=== PATIENT | female | born 1985 ===

== ENCOUNTER 2017-08-13 17:33 | Emergency (ER) | payer OTHER ==
[~2017-08-13] VITALS: Ht 157.5 cm; Wt 59.0 kg
[~2017-08-13 17:33] MED LIST: IBUP800 PO; OXYACE5T PO; [UNRECOGNIZED DRUG - OTHER]
[2017-08-13 19:19] LABS: BASOPHILS PERCENT AUTO 2 % (0-2); EOSINOPHILS ABSOLUTE AUTO 0.15 K/mm3 (0.00-0.68); EOSINOPHILS PERCENT AUTO 3 % (0-6); Hematocrit 31.3 % (33.0-51.0); Hemoglobin 9.3 g/dL (11.5-16.0); IMMATURE GRAN ABSOLUTE AUTO 0.02 K/mm3 (0.00-0.10); IMMATURE GRAN PERCENT AUTO 0 % (0-1); LYMPHOCYTES ABSOLUTE AUTO 1.65 K/mm3 (0.84-5.20); LYMPHOCYTES PERCENT AUTO 29 % (21-46); MONOCYTES ABSOLUTE AUTO 0.37 K/mm3 (0.16-1.47); MONOCYTES PERCENT AUTO 7 % (4-13); Mean Corpuscular HGB 20.1 pg (26.0-34.0); Mean Corpuscular HGB Conc 29.7 g/dL (31.5-36.5); Mean Corpuscular Volume 68 fL (80-100); Mean Platelet Volume 8.6 fL (9.1-12.4); NEUTROPHILS ABSOLUTE AUTO 3.33 K/mm3 (1.96-9.15); NEUTROPHILS PERCENT AUTO 59 % (41-73); Platelet Count 138 K/mm3 (150-400); RDW Coefficient Variation 22.9 % (11.7-14.2); RDW Standard Deviation 54.7 fL (35.1-46.3); Red Blood Cell Count 4.63 M/mm3 (3.80-5.20); White Blood Cell Count 5.62 K/mm3 (4.00-11.30)
[2017-08-13 19:42] LABS: Alanine Aminotransfer (ALT/SGP 74 U/L (12-78); Albumin, Blood 3.9 g/dL (3.4-5.0); Albumin/Globulin Ratio 0.8 (0.8-1.8); Alk Phos 150 U/L (50-136); Anion Gap 10 mmol/L (6-16); Aspartate Aminotrans (AST/SGOT 209 U/L (12-37); Bilirubin, Total 1.3 mg/dL (0.1-1.0); Blood Urea Nitrogen 2 mg/dL (8-24); Bun/Creatinine Ratio 3.9 (12.0-20.0); CO2, Blood 27 mmol/L (21-32); Calcium, Blood 8.5 mg/dL (8.5-10.1); Chloride, Blood 106 mmol/L (98-108); Creatinine, Blood 0.51 mg/dL (0.40-1.00); Globulin, Blood 5.2 g/dL (2.2-4.0); Glomerular Filtration Rate >60 (60-); Glucose, Blood 92 mg/dL (70-99); Potassium, Blood 3.9 mmol/L (3.5-5.5); Sodium, Blood 143 mmol/L (136-145); Total Protein, Blood 9.1 g/dL (6.4-8.2)
[2017-08-13] MEDS ORDERED: Zofran Odt4 MG SL (21:44)
== END 2017-08-13 21:59 | disposition home or self-care (01) ==
LOC: ER 17:33
PROVIDERS: Nurse Practitioner Family
DX: R10.30 Lower abdominal pain, unspecified (principal); Z88.8 Allergy status to other drugs, medicaments and biological substances; Z88.5 Allergy status to narcotic agent; Z91.018 Allergy to other foods; Z87.891 Personal history of nicotine dependence
CPT/HCPCS: 36415; 76830; 76856; 80053; 81000; 81025; 85025; 96374; 96375; 99284; J1885; J2405

== ENCOUNTER → 2023-11-13 | Outpatient (CLI) | payer OTHER ==
[~2023-11-13] MED LIST changes: +Zofran Odt4 MG SL
[2023-11-13 15:28] LABS: BASOPHILS ABSOLUTE AUTO 0.05 K/mm3 (0.00-0.23); BASOPHILS PERCENT AUTO 1 % (0-2); EOSINOPHILS ABSOLUTE AUTO 0.18 K/mm3 (0.00-0.68); EOSINOPHILS PERCENT AUTO 2 % (0-6); Hemoglobin 10.4 g/dL (11.5-16.0); IMMATURE GRAN ABSOLUTE AUTO 0.02 K/mm3 (0.00-0.10); IMMATURE GRAN PERCENT AUTO 0 % (0-1); LYMPHOCYTES ABSOLUTE AUTO 2.92 K/mm3 (0.84-5.20); LYMPHOCYTES PERCENT AUTO 37 % (21-46); MONOCYTES ABSOLUTE AUTO 0.45 K/mm3 (0.16-1.47); MONOCYTES PERCENT AUTO 6 % (4-13); Mean Corpuscular HGB 23.1 pg (26.0-34.0); Mean Corpuscular HGB Conc 31.5 g/dL (31.5-36.5); Mean Corpuscular Volume 73 fL (80-100); Mean Platelet Volume 10.5 fL (9.1-12.4); NEUTROPHILS ABSOLUTE AUTO 4.38 K/mm3 (1.96-9.15); NEUTROPHILS PERCENT AUTO 55 % (41-73); Platelet Count 397 K/mm3 (150-400); RDW Coefficient Variation 15.8 % (11.7-14.2); RDW Standard Deviation 41.8 fL (35.1-46.3); RETICULOCYTE ABSOLUTE 0.0527 M/mm3 (0.0200-0.1100); RETICULOCYTE COUNT PERCENT 1.17 % (0.50-2.50)
[2023-11-13 15:42] LABS: Percent Saturation 5.2 % (15.0-50.0)
== END ==
LOC: LAB SHORT 14:14 → LAB 14:14
PROVIDERS: Family Medicine
DX: D50.8 Other iron deficiency anemias (principal); D64.9 Anemia, unspecified
CPT/HCPCS: 82607; 82728; 82746; 83540; 83550; 85025; 85045

== ENCOUNTER → 2023-12-02 | Outpatient (CLI) | payer OTHER ==
[2023-12-09 11:19] LABS: HPV HIGH RISK BY TMA Not Detected; HPV SOURCE Cervical
== END | disposition home or self-care (01) ==
LOC: LAB 19:01 → LAB SHORT 19:01
PROVIDERS: Family Medicine
DX: Z01.419 Encounter for gynecological examination (general) (routine) without abnormal findings (principal)
CPT/HCPCS: 87624; G0123

== ENCOUNTER → 2024-08-19 | Outpatient (CLI) | payer OTHER ==
[2024-08-19 20:56] LABS: Bacterial Vaginosis PCR Negative (NEGATIVE); Candida Group, PCR NOT DETECTED (NOT DETECT); Candida glabrata-krusei, PCR NOT DETECTED (NOT DETECT)
== END ==
LOC: LAB 16:50 → LAB SHORT 16:50
PROVIDERS: Family Medicine
DX: N92.1 Excessive and frequent menstruation with irregular cycle (principal)
CPT/HCPCS: 81515

== ENCOUNTER 2025-03-16 05:51 | Day surgery (SDC) | payer OTHER ==
[2025-03-16] VITALS (11 sets, daily range): BP systolic 102–140; BP diastolic 66–94
[~2025-03-16] VITALS: Ht 157.5 cm; Wt 63.2 kg
[2025-03-16] MEDS ORDERED: CeFAZolin Sodium 2,000 MG in NS 100 ML IV SCH ×2 (06:25→14:00)
[2025-03-16] MEDS ORDERED: FentaNYL Citrate 50 MCG/ML 2 ML Injection ONE (06:57)
[2025-03-16] MEDS ORDERED: Sugammadex Sodium 200 MG/2ML SDV (100 MG/ML) ONE (06:57)
[2025-03-16] MEDS ORDERED: Ondansetron HCl 2 MG / ML 2ML Vial ONE (06:59)
[2025-03-16] MEDS ORDERED: Rocuronium Bromide 10 MG/ML 5ML Injection IV ONE ×3 (06:59→10:06)
[2025-03-16] MEDS ORDERED: Dexamethasone Sod Phos 10 MG/ML 1ML VIAL ONE (06:59)
[2025-03-16] MEDS ORDERED: Bupivacaine 0.5% W/EPI 1:200000 SDV 30 ML Vial ONE (07:13)
[2025-03-16] MEDS ORDERED: Phenylephrine HCl 100 MCG/ML-NS 10MLSYR (1MG/10ML) ONE ×2 (07:41→10:35)
[2025-03-16] MEDS ORDERED: HYDROmorphone HCl/Pf 1MG SYR ONE (09:29)
[2025-03-16] MEDS ORDERED: FentaNYL Citrate 50 MCG/ML 2 ML Injection IV PRN ×2 (11:30)
[2025-03-16] MEDS ORDERED: LORazepam 2 MG/ML 1ML Injection IV PRN (11:30)
[2025-03-16] MEDS ORDERED: Ketorolac Tromethamine 30mg Vial IV ONE (11:30)
[2025-03-16] MEDS ORDERED: Albuterol 2.5 MG/3 ML VIAL INH PRN (11:30)
[2025-03-16] MEDS ORDERED: Ondansetron HCl 2 MG / ML 2ML Vial IV PRN ×2 (11:30→11:45)
[2025-03-16] MEDS ORDERED: HYDROmorphone HCl/Pf 1MG SYR IV PRN ×3 (11:35→11:40)
[2025-03-16] MEDS ORDERED: FLU VACC TS2025-26(6MOS UP)/PF 45 MCG/0.5 ML SYRINGE IM ONE (11:40)
[2025-03-16] MEDS ORDERED: Naloxone HCl 0.4MG / ML 1ML Vial IV PRN (11:40)
[2025-03-16] MEDS ORDERED: Ketorolac Tromethamine 30mg Vial IV PRN (11:50)
--- NOTE | 2025-03-16 17:27 | NUR ---
DISCHARGE S/P [facility] WITH BSO PT AMBULATING WELL, PAIN WELL CONTROLLED PER EMAR. TOLERATING DIET WELL, MINIMAL NAUSEA PT REPORTS WOULD FEEL BETTER CONTROLLED AT HOME. ABLE TO VOID LARGE AMOUNT. ALL INSTRUCTIONS GONE OVER WITH PATIENT. ALL QUESTIONS ANSWERED. ESCORTED OUT VIA WHEELCHAIR.
== END 2025-03-16 17:30 | disposition home or self-care (01) ==
LOC: ORSCMMR 05:51 → SURS 05:51 → ORSCMMR 05:53 → ORD 07:30 → ORSCMMR 07:30 → SURS 11:36 → ORSCMMR 17:30
PROVIDERS: Obstetrics & Gynecology
PROC: 0UT7FZZ Resection of Bilateral Fallopian Tubes, Via Natural or Artificial Opening With Percutaneous Endoscopic Assistance (ICD-10-PCS; principal; 2025-03-16 07:30)
PROC: 0U5F4ZZ Destruction of Cul-de-sac, Percutaneous Endoscopic Approach (ICD-10-PCS; principal; 2025-03-16 07:30)
PROC: 0UT9FZZ Resection of Uterus, Via Natural or Artificial Opening With Percutaneous Endoscopic Assistance (ICD-10-PCS; principal; 2025-03-16 07:30)
PROC: 0UT2FZZ Resection of Bilateral Ovaries, Via Natural or Artificial Opening With Percutaneous Endoscopic Assistance (ICD-10-PCS; principal; 2025-03-16 07:30)
DX: N92.1 Excessive and frequent menstruation with irregular cycle (principal); D50.0 Iron deficiency anemia secondary to blood loss (chronic); N80.03 Adenomyosis of the uterus; N94.5 Secondary dysmenorrhea; D27.0 Benign neoplasm of right ovary; N80.30 Endometriosis of pelvic peritoneum, unspecified
CPT/HCPCS: 86850; 86900; 86901; 88305; 88307; A9270; J0690; J1100; J1171; J1885; J2371; J2405; J2704; J3010; J7120